=== PATIENT | female | born 1985 | race Caucasian/White ===

== ENCOUNTER → 2018-05-01 11:59 | Outpatient (CLI) | payer OTHER, MEDICAID, SELFPAY ==
--- NOTE | 2018-05-01 11:59 | DI.US.S_ITS ---
PROCEDURE: US PELVIC COMPLETE INDICATIONS: MENORRHAGIA TECHNIQUE: Real-time scanning was performed of the pelvic organs, with image documentation. Additional endovaginal scanning was necessary due to incomplete visualization of the adnexal and endometrial structures by transabdominal scanning. COMPARISON: None. FINDINGS: Transabdominal scanning: Limited scanning through the kidneys shows no hydronephrosis. No pathologic free abdominal or pelvic fluid. Endovaginal scanning: Uterus: Uterus is normal in size at 7.8 x 3.6 x 5.1 cm. The endometrium measures 11 mm in combined thickness. Ovaries: The right ovary measures 2.6 x 2.1 x 2.8 cm. The left ovary measures 3.1 x 1.8 x 1.6 cm. The ovaries have a normal sonographic appearance. No adnexal masses are seen. IMPRESSION: Negative pelvic ultrasound. Dictated by: Jacob Simmosn M.D. on 05/01/2018 at 12:06 Approved by: Jacob Simmons M.D. on 05/01/2018 at 12:07
== END ==
PROVIDERS: Family Provider Family Medicine; PCP Family Medicine; Visit Provider Family Medicine
DX: N92.1 Excessive and frequent menstruation with irregular cycle (principal)
CPT/HCPCS: 76830; 76856

== ENCOUNTER → 2019-12-12 14:18 | Outpatient (CLI) | payer OTHER, MEDICAID, SELFPAY ==
[2019-12-12 17:34] LABS: Influenza A - CEPHEID Flu A NEGATIVE (NEGATIVE); Influenza B - CEPHEID Flu B NEGATIVE (NEGATIVE)
[2019-12-13 23:39] LABS: COVID19 Sendout Not Detected (Not Detected)
== END ==
PROVIDERS: Family Provider Family Medicine; PCP Family Medicine; Visit Provider Family Medicine
DX: R05 Cough (principal)
CPT/HCPCS: 87502; 87635

== ENCOUNTER 2020-07-26 12:37 | Emergency (ER) | payer OTHER, MEDICAID, SELFPAY ==
[2020-07-26 12:50] VITALS: BP 134/67; PULSE 81; RESP 17; TEMP 36.4; O2SAT 100; BMI 23.6
--- NOTE | 2020-07-26 13:45 | ED.NAVMDI ---
HPI - Nausea/Vomiting/Diarrhea General Chief complaint: Nausea/Vomiting/Diarrhea Stated complaint: Throwing up, Hot and Cold, Can't Stand, No Taste Time Seen by Provider: 07/26/20 13:06 Source: patient Mode of arrival: Wheelchair Limitations: no limitations History of Present Illness HPI Narrative: Patient is a 34-year-old female who presents with generalized body aches and vomiting. She says yesterday she she cannot taste or smell anything. She works at [employer] and was recently switched over to work nights. Today she has been vomiting nonstop and has mid epigastric pain. She has body aches and chills but denies any fever. She overall has fatigue and does not feel well. MD complaint: nausea, vomiting and abdominal pain Location of pain: epigastric Related Data Previous Rx's Medication Instructions Recorded ondansetron 4 mg PO Q8H PRN #10 tab 07/26/20 Allergies Allergy/AdvReac Type Severity Reaction Status Date / Time Sulfa (Sulfonamide Allergy Unknown Verified 07/26/20 13:29 Antibiotics) Review of Systems Review of Systems Narrative: GENERAL: + fatigue, +body aches + chills HEENT: Denies sinus pain, ear pain, sore throat, difficulty swallowing, neck pain RESPIRATORY: Denies dyspnea, cough, wheezing, hemoptysis, sputum. CARDIOVASCULAR: Denies chest pain, palpitations, orthopnea, edema GASTROINTESTINAL: See HPI : Denies dysuria, frequency, incontinence, hematuria, urinary retention, flank pain. MUSCULOSKELETAL: Denies weakness, joint pain, or bony pain SKIN: No rash, no erythema, no pruritus NEUROLOGIC: Denies weakness, dizziness, headache, numbness, change in speech, confusion PSYCHIATRIC: No concerning psychosocial issues. 12 point review of systems is negative except for those stated above and HPI Patient History Medical History ADHD (attention deficit hyperactivity disorder) (Chronic) Anemia (Chronic) Ankle pain (Chronic 2010) Anorexia (Chronic) Anxiety (Chronic) Asthma (Chronic) Chronic back pain (Chronic) Chronic headaches (Chronic) Cystic fibrosis (Chronic 2000) Depression (Chronic) Foot pain (Chronic) Hearing loss (Chronic) Migraines (Chronic) Shoulder pain (Chronic) Surgical History No history of previous surgery (Resolved 07/2017) Family History Father Age: 53 Hypertension High cholesterol Grandfather Bone cancer Hypertension Grandmother Cancer Hypertension High cholesterol Stroke Mother Heart disease Hypertension Grandfather Age: 83 Cancer Heart disease Hypertension High cholesterol Grandmother Hypertension High cholesterol Diabetes mellitus Social History Smoking Status: Former smoker Smoking Status: Former smoker alcohol intake frequency: holidays/special occasions only Substance Use Type: marijuana Exam Initial Vital Signs Initial Vital Signs: Vital Signs Temperature 97.5 F L 07/26/20 12:50 Pulse Rate 81 07/26/20 12:50 Respiratory Rate 17 07/26/20 12:50 Blood Pressure 134/67 07/26/20 12:50 Pulse Oximetry 100 07/26/20 12:50 GENERAL: A thin young female appears to not feel well and in no acute distress. HEENT: Head atraumatic,EOMI, pupils reactive, face symmetric, moist mucous membranes CARDIOVASCULAR: Regular rate and rhythm without murmurs, rubs or gallops. RESPIRATORY: Breath sounds equal bilaterally, no wheezes rales or rhonchi. ABDOMEN: Soft, mild epigastric pain no guarding or rebound no right upper quadrant pain EXTREMITIES: Normal range of motion, no clubbing or edema. Neurovascularly intact NEUROLOGICAL: Alert and oriented x4.Normal gait and speech. SKIN: Warm, dry, no laceration, no petechiae, no rashes or lesions. Course Orders Ordered: ED Orders 07/26/20 13:45 COVID19 Stat 07/26/20 14:20 Complete Blood Count AUTO DIFF Stat Comprehensive Metabolic Panel Stat Lipase Stat Discontinued Medications Sodium Chloride (Normal Saline 0.9%) 1,000 mls @ 1,000 mls/hr IV CONT ANNEL Last Infusion: 07/26/20 15:05 Dose: 0 mls/hr Documented by: Admin: 07/26/20 14:03 Dose: 1,000 mls/hr Documented by: SANDIP Ondansetron HCl (Zofran) 4 mg IV NOW ONE Stop: 07/26/20 13:25 Last Admin: 07/26/20 14:02 Dose: 4 mg Documented by: SANDIP Ondansetron HCl (Zofran) 4 mg IV NOW ONE Stop: 07/26/20 14:43 Last Admin: 07/26/20 14:52 Dose: 4 mg Documented by: SANDIP Pantoprazole Sodium (Protonix) 40 mg IV NOW ONE Stop: 07/26/20 14:43 Last Admin: 07/26/20 14:52 Dose: 40 mg Documented by: SANDIP Vital Signs Vital signs: Vital Signs - 8 hr 07/26/20 12:50 07/26/20 14:12 07/26/20 14:30 Temperature 97.5 F L Pulse Rate 81 71 60 Respiratory Rate 17 Blood Pressure 134/67 119/72 Pulse Oximetry 100 100 100 07/26/20 15:00 07/26/20 15:30 07/26/20 16:00 Temperature Pulse Rate 68 62 69 Respiratory Rate Blood Pressure 110/67 108/69 115/82 Pulse Oximetry 97 97 98 MDM - Nausea/Vomiting/Diarrhea Lab Data Attestation: I reviewed the patient's lab results. Result diagrams: 07/26/20 14:20 07/26/20 14:20 Labs: Lab Results 07/26/20 07/26/20 07/26/20 Range/Units 13:45 14:20 14:20 WBC 5.4 (4.5-11.0) X10^3/uL RBC 4.09 (4.0-5.2) X10^6/uL Hgb 12.1 (12.0-16.0) g/dL Hct 36.3 (36-46) % MCV 88.7 (80-100) fL MCH 29.7 (26-34) PG MCHC 33.4 (30-36) % RDW 12.7 (11.6-14.8) % Plt Count 136 L (150-400) X10^3/uL Neut % (Auto) 71.0 (50-75) % Lymph % (Auto) 19.9 L (25-40) % [place] % (Auto) 8.2 (3-14) % Eos % (Auto) 0.4 L (2-4) % Baso % (Auto) 0.5 (0-2) % Neut # (Auto) 3900 (7987-4806) /uL Lymph # (Auto) 1100 (0248-6744) /uL [place] # (Auto) 400 (0-900) /uL Eos # (Auto) 0 (0-450) /uL Baso # (Auto) 0 (0-100) /uL Sodium 138 (137-145) mmol/L Potassium 3.6 (3.4-5.1) mmol/L Chloride 107 (98-107) mmol/L Carbon Dioxide 23 (22-32) mmol/L BUN 13 (7-17) mg/dL Creatinine 0.67 (0.52-1.04) mg/dL Estimated GFR > 60.0 (>60) mL/min BUN/Creatinine Ratio 19.4 (6-22) Glucose 86 (70-100) mg/dL Calcium 9.3 (8.4-10.2) mg/dL Total Bilirubin 0.8 (0.2-1.3) mg/dL AST 21 (14-36) IU/L ALT 15 (<35) IU/L Alkaline Phosphatase 82 (38-126) U/L Total Protein 6.9 (6.3-8.2) g/dL Albumin 4.1 (3.5-5.0) g/dL Globulin 2.8 (1.7-4.1) g/dL Albumin/Globulin Ratio 1.5 (1.0-2.8) Lipase 93 (23-300) U/L COVID-19 PCR Negative (Negative) MDM Narrative Medical decision making narrative: Patient is now tolerating fluids blood work is overall reassuring COVID is negative however patient does have loss of taste and smell which is highly suspicious for COVID-19. I recommend treating this as COVID-19, and quarantining for 14 days. She does not have any respiratory symptoms at this time. Discharge Plan Departure Patient Disposition: Home Clinical Impression: COVID-19, Gastroenteritis Discharge Date/Time: 07/26/20 16:20 Instructions: DI for COVID-19 (Suspected or Confirmed ) Activity Restrictions/Additional Instructions: *You have been diagnosed with high suspicion for COVID-19 *What to do: You are generally going to feel ill. To rest, hydrate, fever control *Continue to take medications as directed Zofran 4 mg every 8 hours if needed for nausea or vomiting-->SENT TO [facility] Tylenol 1000 mg every 6 hours if needed for pain or fever *Follow up with your primary care provider in 2-3 days *Return to ER if you should have increasing shortness of breath, inability to tolerate fluids, [or] any new, worsening or concerning symptoms CDC Guidelines for home isolation: - Stay away from others - Limit contact with pets and animals: If you must care for a pet, wash your hands before and after interacting with them - Wear a mask if you are sick - Cover your mouth and nose with a tissue when you cough or sneeze. Dispose of tissues in a lined trash can and wash your hands immediately with soap and water for at least 20 seconds. If soap and water are not available, clean hands with alcohol-based hand conservation worker that contains at least 60% alcohol. - Clean your hands often with soap and water for at least 20 seconds - Avoid touching your eyes, nose and mouth with unwashed hands - Do not share dishes, drinking glasses, cups, eating utensils, towels, or bedding with other people in your home. After using these items, wash them thoroughly with soap and water or put in the coil machine supervisor. - Clean high-touch surfaces in your isolation area (?sick room? and bathroom) every day; let a caregiver clean and disinfect high-touch surfaces in other areas of the home. Clean the area or item with soap and water or another detergent if it is dirty. Then, use a household disinfectant. Seek medical attention, but call first: - Seek medical care right away if your illness is worsening (for example, if you have difficulty breathing). - Call your doctor before going in: Before going to the doctor?s office or emergency room, call ahead and tell them your symptoms. They will tell you what to do. - If possible, put on a facemask before you enter the building. If you can?t put on a facemask, try to keep a safe distance from other people (at least 6 feet away). This will help protect the people in the office or waiting room. - Follow care instructions from your healthcare provider and local health department: Your local health authorities will give instructions on checking your symptoms and reporting information. Emergency warning signs for COVID-19: - Difficulty breathing or shortness of breath - Persistent pain or pressure in the chest - New confusion or inability to arouse - Bluish lips or face Prescriptions: New ondansetron 4 mg tablet,disintegrating 4 mg PO Q8H PRN (Reason: nausea and vomiting) Qty: 10 RF: 0 Referrals: Marlen Peres MD [Primary Care Provider] - Stand Alone Forms: Work Release Note
[2020-07-26] MEDS: ONDANSETRON 4 MG/2 ML INJ IV ×2 (14:02→14:52)
[2020-07-26] MEDS: SODIUM CHLORIDE 0.9% 1,000 ML 1000 ML IV (14:03)
[2020-07-26 14:12] VITALS: PULSE 71; O2SAT 100
[2020-07-26 14:27] LABS: COVID19 -Nasal RAPID Negative (Negative)
[2020-07-26 14:30] VITALS: BP 119/72; PULSE 60; O2SAT 100
[2020-07-26 14:35] LABS: Add Manual Diff / Slide Review NO; Basophils Absolute Auto 0 /uL (0-100); Basophils Percent Auto 0.5 % (0-2); Eosinophils Absolute Auto 0 /uL (0-450); Eosinophils Percent Auto 0.4 % (2-4); Hematocrit 36.3 % (36-46); Hemoglobin 12.1 g/dL (12.0-16.0); Lymphocytes Absolute Auto 1100 /uL (1100-4500); Lymphocytes Percent Auto 19.9 % (25-40); Mean Corpuscular HGB Conc 33.4 % (30-36); Mean Corpuscular Hemoglobin 29.7 PG (26-34); Mean Corpuscular Volume 88.7 fL (80-100); Monocytes Absolute Auto 400 /uL (0-900); Monocytes Percent Auto 8.2 % (3-14); Neutrophils Absolute Auto 3900 /uL (1500-7000); Platelet Count 136 X10^3/uL (150-400); Red Blood Cell Count 4.09 X10^6/uL (4.0-5.2); Red Cell Distribution Width 12.7 % (11.6-14.8); White Blood Cell Count 5.4 X10^3/uL (4.5-11.0)
[2020-07-26 14:52] LABS: Alanine Aminotransferase 15 IU/L (<35); Albumin 4.1 g/dL (3.5-5.0); Albumin Globulin Ratio 1.5 (1.0-2.8); Alkaline Phosphatase 82 U/L (38-126); Aspartate Aminotransferase 21 IU/L (14-36); BUN Creatinine Ratio 19.4 (6-22); Bilirubin Total 0.8 mg/dL (0.2-1.3); Blood Urea Nitrogen 13 mg/dL (7-17); Calcium 9.3 mg/dL (8.4-10.2); Carbon Dioxide 23 mmol/L (22-32); Chloride 107 mmol/L (98-107); Estimated Glomerular Filt Rate > 60.0 mL/min (>60); Globulin 2.8 g/dL (1.7-4.1); Glucose 86 mg/dL (70-100); HEMOLYSIS < 15 (0-50); Lipase 93 U/L (23-300); Potassium 3.6 mmol/L (3.4-5.1); Sodium 138 mmol/L (137-145); Total Protein 6.9 g/dL (6.3-8.2)
[2020-07-26] MEDS: PANTOPRAZOLE 40 MG VIAL IV (14:52)
[2020-07-26 15:00] VITALS: BP 110/67; PULSE 68; O2SAT 97
[2020-07-26 15:30] VITALS: BP 108/69; PULSE 62; O2SAT 97
[2020-07-26 16:00] VITALS: BP 115/82; PULSE 69; O2SAT 98
== END 2020-07-26 16:20 | disposition home or self-care (01) ==
PROVIDERS: Emergency Provider Emergency Medicine; Family Provider Family Medicine; PCP Family Medicine
DX: U07.1 COVID-19 (principal); K52.9 Noninfective gastroenteritis and colitis, unspecified; R11.2 Nausea with vomiting, unspecified
CPT/HCPCS: 36415; 80053; 83690; 85025; 87635; 96361; 96374; 96375; 96376; 99284; C9113; J2405

== ENCOUNTER → 2020-08-14 11:31 | Outpatient (CLI) | payer OTHER, MEDICAID, SELFPAY ==
[2020-08-14 12:05] LABS: COVID19 -Nasal RAPID Negative (Negative)
== END ==
PROVIDERS: Family Provider Family Medicine; PCP Family Medicine; Visit Provider Family Medicine
DX: R05 Cough (principal)
CPT/HCPCS: 87635

== ENCOUNTER → 2020-08-14 11:49 | Outpatient (CLI) | payer OTHER, MEDICAID, SELFPAY ==
[2020-08-14 12:54] LABS: Add Manual Diff / Slide Review NO; Basophils Absolute Auto 0 /uL (0-100); Basophils Percent Auto 0.4 % (0-2); Eosinophils Absolute Auto 200 /uL (0-450); Eosinophils Percent Auto 3.5 % (2-4); Hematocrit 36.9 % (36-46); Hemoglobin 12.2 g/dL (12.0-16.0); Lymphocytes Absolute Auto 1400 /uL (1100-4500); Lymphocytes Percent Auto 25.2 % (25-40); Mean Corpuscular HGB Conc 33.1 % (30-36); Mean Corpuscular Hemoglobin 29.7 PG (26-34); Mean Corpuscular Volume 89.8 fL (80-100); Monocytes Absolute Auto 400 /uL (0-900); Neutrophils Absolute Auto 3500 /uL (1500-7000); Neutrophils Percent Auto 62.9 % (50-75); Platelet Count 196 X10^3/uL (150-400); Red Blood Cell Count 4.11 X10^6/uL (4.0-5.2); Red Cell Distribution Width 13.6 % (11.6-14.8); White Blood Cell Count 5.6 X10^3/uL (4.5-11.0)
[2020-08-14 13:16] LABS: Erythrocyte Sedimentation Rate 8 MM/HR (0-20)
[2020-08-14 13:19] LABS: C-Reactive Protein Quant < 0.5 mg/dL (<1.0)
[2020-08-14 13:58] LABS: TSH w/ Reflex to FT4 1.16 uIU/mL (0.47-4.68)
[2020-08-17 16:22] LABS: ANA Screen, IFA Negative (.)
== END ==
PROVIDERS: Family Provider Family Medicine; PCP Family Medicine; Referring Provider Family Medicine; Visit Provider Family Medicine
DX: D69.6 Thrombocytopenia, unspecified (principal); M25.50 Pain in unspecified joint; R21 Rash and other nonspecific skin eruption; R05 Cough
CPT/HCPCS: 36415; 84443; 85025; 85651; 86038; 86140; 87635

== ENCOUNTER → 2020-08-22 09:13 | Outpatient (CLI) | payer OTHER, MEDICAID, SELFPAY ==
[2020-08-22 10:23] LABS: Rheumatoid Factor < 8.6 IU/mL (<12.0)
[2020-08-25 20:09] LABS: CCP Antibodies IgG/IgA 6 units (0-19)
== END ==
PROVIDERS: Family Provider Family Medicine; PCP Family Medicine; Referring Provider Family Medicine; Visit Provider Family Medicine
DX: M25.50 Pain in unspecified joint (principal); R21 Rash and other nonspecific skin eruption
CPT/HCPCS: 36415; 86200; 86430

== ENCOUNTER → 2021-01-08 08:44 | Outpatient (CLI) | payer OTHER, MEDICAID, SELFPAY ==
[2021-01-08 11:38] LABS: Alanine Aminotransferase 14 IU/L (<35); Albumin 4.3 g/dL (3.5-5.0); Albumin Globulin Ratio 1.3 (1.0-2.8); Alkaline Phosphatase 145 U/L (38-126); Aspartate Aminotransferase 23 IU/L (14-36); BUN Creatinine Ratio 27.3 (6-22); Bilirubin Total 0.2 mg/dL (0.2-1.3); Blood Urea Nitrogen 21 mg/dL (7-17); Calcium 9.5 mg/dL (8.4-10.2); Carbon Dioxide 25 mmol/L (22-32); Chloride 105 mmol/L (98-107); Estimated Glomerular Filt Rate > 60.0 mL/min (>60); Globulin 3.3 g/dL (1.7-4.1); Glucose 62 mg/dL (70-100); HEMOLYSIS < 15 (0-50); Sodium 139 mmol/L (137-145); Total Protein 7.6 g/dL (6.3-8.2)
== END ==
PROVIDERS: Family Provider Family Medicine; PCP Family Medicine; Referring Provider Family Medicine; Visit Provider Family Medicine
DX: L50.1 Idiopathic urticaria (principal); M25.50 Pain in unspecified joint; R21 Rash and other nonspecific skin eruption
CPT/HCPCS: 36415; 80053

== ENCOUNTER → 2021-02-02 10:45 | Outpatient (CLI) | payer OTHER, MEDICAID, SELFPAY ==
[2021-02-02 12:59] LABS: Alkaline Phosphatase 112 U/L (38-126); Gamma Glutamyl Transpeptidase 16 U/L (12-43); Glucose 71 mg/dL (70-100)
== END ==
PROVIDERS: Family Provider Family Medicine; PCP Family Medicine; Referring Provider Family Medicine; Visit Provider Family Medicine
DX: R74.8 Abnormal levels of other serum enzymes (principal); E16.2 Hypoglycemia, unspecified
CPT/HCPCS: 36415; 82947; 82977; 84075

== ENCOUNTER → 2021-04-08 14:04 | Outpatient (CLI) | payer OTHER, MEDICAID, SELFPAY ==
[2021-04-08 14:49] LABS: COVID19 -Nasal RAPID Negative (Negative)
== END ==
PROVIDERS: Family Provider Family Medicine; PCP Family Medicine; Visit Provider Obstetrics & Gynecology
DX: Z01.812 Encounter for preprocedural laboratory examination (principal); Z20.822 Contact with and (suspected) exposure to COVID-19
CPT/HCPCS: 87635

== ENCOUNTER 2021-04-09 12:01 | Day surgery (SDC) | payer OTHER, MEDICAID, SELFPAY ==
[2021-04-02 10:56] VITALS: BMI 24.6
[2021-04-09] VITALS (11 sets, daily range): BP systolic 92–133; BP diastolic 58–84; PULSE 52–81; RESP 12–16; TEMP 35.6–37.3; O2SAT 99–100; BMI 25.4
--- NOTE | 2021-04-09 | PATH_ITS ---
[facility] Accession Number: [id number] . 01 Material submitted: . uterus - UTERUS, BILATERAL FALLOPIAN TUBES . 01 Clinical history: . COLPOSCOPY . 02 Diagnosis: Uterus, Bilateral Fallopian Tubes, Hysterectomy and Bilateral Salpingectomy (Weight 33 grams): Cervix with changes consistent with previous instrumentation. Endocervix with no significant histomorphologic abnormality. Secretory endometrium; negative for glandular hyperplasia, cytologic atypia, or malignancy. Myometrium with no significant histomorphologic abnormality. Uterine serosa with no significant histomorphologic abnormality. Fallopian tubes x2 with multiple benign paratubal cysts (1-5 mm) and no significant histomorphologic abnormality. Negative for atypia or malignancy. Negative for p16 block immunostaining. [facility] 04/14/2021 1732 Local . 02 Electronically signed: . Crissy Vee MD, Pathologist NPI- [id number] . 01 Gross description: . The specimen is received in formalin, labeled uterus, bilateral fallopian tubes and consists of a 33-gram uterus and cervix measuring 7.2 cm from superior fundus to cervix by 5.0 cm from cornu to cornu by 3.0 cm from anterior to posterior. The serosa is hernández-pink and smooth. The hernández-pink smooth, focally granular ectocervix measures 3.0 x 2.5 cm and there is a 1.2 x 0.1 cm os. The specimen is bivalved to reveal a hernández-pink herringbone endocervical mucosa. The endometrial cavity measures 3.2 x 2.0 cm and displays a pink-red hemorrhagic endometrium measuring 0.1 cm in thickness. The myometrium is hernández-pink and trabeculated, measuring 1.4 cm in thickness. Also received are two detached fallopian tubes measuring 4.5 cm in length by 0.7 cm in diameter and 5.3 cm in length by 0.9 cm in diameter. The serosa is hernández-pink and smooth with multiple paratubal cysts ranging from 0.1-0.5 cm. Sectioning reveals a hernández-pink mucosa and a stellate lumen measuring 0.3 cm in diameter. Lunchroom Food Service Supervisor sections are submitted. . A1-A2: Cervix, 12-3 o'clock. A3-A4: Cervix, 3-6 o'clock. A5-A6: Cervix, 6-9 o'clock. A7-A8: Cervix, 9-12 o'clock. A9: Anterior lower uterine segment. A10: Anterior uterus. A11: Posterior lower uterine segment. A12: Posterior uterus. A13-A14: Fallopian tubes, margin (blue/en face), central cross-sections and bisected fimbria. (EA:[id number]) /MRV 04/10/2021 [facility]8 Local . 02 Microscopic: . An immunohistochemical stain for p16 is performed on blocks A1-A8 to evaluate for block reactivity and is negatve for block immunostaining. The control stained with appropriate reactivity. . The absence of p16 block immunostaining mitigates against the presence of high risk HPV DNA in this biopsy. . . * This test was developed and its performance characteristics determined by [employer]. It has not been cleared or approved by the U.S. Food and Drug Administration. The FDA has determined that such clearance or approval is not necessary. This test is used for clinical purposes. It should not be regarded as investigational or for research. . 02 Pathologist provided ICD-10: Z87.410, N93.9, N88.9 . 02 CPT . 632640, K53190 Performed at: 01 [facility] [address] [place] [address], [place], [place] [id number] MD Prashant Case MD Phone: [phone] Performed at: [address] [id number] MD Mayelin Montoya MD Phone: [phone]
[2021-04-09] MEDS: LACTATED RINGERS 1,000 ML 100 ML IV ×3 (12:45→19:39)
--- NOTE | 2021-04-09 13:08 | PM.PREOP ---
Pre-operative Note COVID-19 COVID-19 status: Negative Result date/Date tested (Pos, Neg/Pending): 04/08/21 Interval Note History & Physical reviewed/Exam performed by Physician: No Changes to H&P: No H&P completed within 30 days and has changed as indicated here:: Discussed with patient risks and benefits of surgery. Discussed risk of damage to bowel, bladder, and ureters, risk of hemorrhage and risk of infection. Discussed need for repair intraoperatively or repeat surgery. Discussed prophylactic antibiotics. Discussed benefit of bilateral salpingectomy and decreased risk of ovarian cancer, discussed alternatives, discussed risk of prolapse with removal of cervix compared with patient's history of cervical dysplasia. Discussed permanent sterility after hysterectomy. All questions answered, informed consent obtained, and consents signed.
--- NOTE | 2021-04-09 15:05 | SUR.OPER ---
Lithotomy on padded OR bed. [place] Pad Positioner under torso. Head on pillow, arms padded and tucked at sides. Legs secured in padded yellow fins stirrups.
[2021-04-09] MEDS: BUPIVACAINE 0.25% W/ EPI 30 ML VIAL INJ (15:14)
[2021-04-09] MEDS: CEFAZOLIN 1 GM VIAL 2 GM IV (15:15)
--- NOTE | 2021-04-09 16:51 | PM.OP.1 ---
Operative Date/Time/Diagnoses Date of procedure: 04/09/21 Time of procedure: 15:00 Pre-op diagnosis: abnormal uterine bleeding, history of cervical dysplasia Post-op diagnosis: same Procedure & Clinicians Procedure: laparoscopically assisted vaginal hysterectomy and bilateral salpingectomy Same procedure as scheduled: Yes Indications: Abnormal uterine bleeding, history of cervical dysplasia Surgeon: Ashley Sullivan Custom Tailor Apprentice: Chito Chapman Anesthesia Type: General Operative Notes Findings: normal vulva and vagina. Normal uterus, tubes and ovaries. Firm and nodular cervix with prominent ectropion. Normal abdominal survey. Closure Type: primary Specimen(s): other (uterus and bilateral fallopian tubes) Estimated Blood Loss (mL): 100 Blood products transfused: none Procedure in detail: After proper consents were obtained, the patient was taken to the operating room. General anesthesia was induced, and she was placed in the dorsal lithotomy position and prepped and draped in the normal sterile fashion. A urias catheter was placed, and a speculum placed in the patient's vagina. A single tooth tenaculum was applied to the anterior lip of the cervix, and hegar dilators used to dilate the cervix to 6mm with gentle pressure. A uterine manipulator was gently inserted and the balloon inflated to 5ccs. The tenaculum and speculum were removed from the vagina. Attention was then turned to the abdomen, where 1cc of .25% marcaine with epinephrine was used to infiltrate the skin just below the umbilicus. A scalpel was used to make a 5mm incision, towel clamps were applied and used to elevate the anterior abdominal wall, and a Veress needle gently inserted into the abdomen. Intraperitoneal placement was confirmed with a drop of normal saline passed through the veress needle with gravity, and CO2 used to insufflate the abdomen to 15mmHg. A 5mm trocar and sleeve were placed into the abdomen through this incision, using the towel clamps to elevate the abdominal wall, and intraperitoneal placement was confirmed visually with insertion of the laparoscope. Abdominal survey at this time was normal, and lateral ports were placed under direct visualization. These were placed on the left and right, 8cm from the umbilicus and after infiltration of 1mm of local anesthetic as above. The patient was placed in trendelenburg position, and a blunt probe used to gently push the bowel out of the pelvis. The ovaries and fallopian tube remnants appeared normal bilaterally. A atraumatic grasper was used to elevate the remnant of the left fallopian tube, and a PK device was used to amputate this remnant, which was removed from the abdomen. The uteroovarian ligament and round ligaments were then cauterized and transected with this device, the anterior and posterior leaflets of the broad ligament and skeletonized and the vesicouterine peritoneum identified. This was transected and a bladder flap created with the PK device and gentle traction. The uterine arteries were identified, and cauterized at the level of the internal os. The same procedure was performed on the patient's right, without complication. Attention was then turned to the vagina, where the uterine manipulator was removed and a weighted speculum and right angle retractor placed. The cervix was grasped with a double toothed tenaculum, and the vaginal mucosa infiltrated with 15ccs of 0.5%% marcaine with epinephrine. An incision was made circumferentially in the vaginal mucosa, with the vaginal mucosa dissected up and away from the cervix with both blunt and sharp dissection. The peritoneal reflection was visualized posteriorly and entry into the posterior cul de sac made sharply with curved roblero scissors, and a weighted speculum placed in the posterior cul de sac. The uterosacral ligaments were visualized and clamped with a gregory clamp, cut with curved roblero scissors, and suture ligated with 0 vicryl. The anterior vaginal mucosa was dissected further from the cervix and an anterior colpotomy made with sharp dissection, and a right angle inserted for further retraction and protection of the bladder. The tenaculae were used to maintain downward traction on the cervix. The same procedure was used to clamp, cut, and tie the cardinal and broad ligaments and the uterine arteries bilaterally, and the uterus was then able to be removed intact without difficulty. The uterine fundus was removed without issue. The vaginal cuff was closely inspected and found to be hemostatic. The vaginal cuff was closed vertically with 0 vicryl in a running, locked fashion. Attention was then returned to the abdomen, and a final inspection was performed and hemostasis assured on the vaginal cuff with the PK device. A repeat abdominal survey was normal. The 5mm ports were removed, and the skin incisions closed with 4-0 biosyn and covered with steri strips and bandages. Vaginal packing was placed and the patient's urias catheter remained. He was transferred to the PACU in stable condition, though with one episode of his known idiopathic urticaria without a clear trigger or breathing difficulties. The patient received 2g Ancef at the beginning of the case. Complications: none Post-operative Condition: stable Disposition: PACU Plan for aftercare: Routine postoperative care.
[2021-04-09] MEDS: ACETAMINOPHEN 325 MG TABLET 650 MG PO (18:44)
--- NOTE | 2021-04-09 19:19 | PC.ADMIT ---
[address] [facility] 52 Admission Note: The patient,Mayelin Goodman,35 y/o, was given written information regarding hospital policies, unit procedures and contact persons. Patient's smoking status: Former smoker. Vital Signs - 8 hr 04/09/21 12:36 04/09/21 16:30 04/09/21 16:43 Temperature 99.1 F 97.1 F L 96.0 F L Pulse Rate 64 59 L 56 L Respiratory Rate 13 16 12 Blood Pressure 111/72 123/69 92/58 L Pulse Oximetry 100 100 04/09/21 16:48 04/09/21 16:53 04/09/21 16:58 Temperature 96.7 F L 97.0 F L 97.2 F L Pulse Rate 58 L 56 L 55 L Respiratory Rate 12 12 12 Blood Pressure 98/70 109/71 114/73 Pulse Oximetry 100 100 100 04/09/21 17:00 04/09/21 17:03 04/09/21 17:12 Temperature 97.7 F 97.2 F L 97.5 F L Pulse Rate 52 L 55 L 81 Respiratory Rate 16 14 16 Blood Pressure 118/77 112/70 133/84 Pulse Oximetry 100 99 100 04/09/21 18:00 Temperature 97.7 F Pulse Rate 68 Respiratory Rate 16 Blood Pressure 115/76 Pulse Oximetry 100 35 y/o male with S/P laporscopic assisted vaginal hystrectomy,admitted from PACU. Alert and orientedx3, denies any pain or discomfort. 3x large bandade on abdominal incision, clean and dry. Vital signs stable.Scd'a in place. 1843 c/o of incisional pain,pain scale of 5/10, tylenol given. 1909 pain lessened. Visitor in room
--- NOTE | 2021-04-09 19:58 | PC.NURSE ---
intake/output: I=90, O= 350, VSS
[2021-04-10 02:52] VITALS: BP 104/71; PULSE 84; RESP 17; TEMP 36.3; O2SAT 99
[2021-04-10] MEDS: ACETAMINOPHEN 325 MG TABLET 650 MG PO ×2 (03:28→08:47)
[2021-04-10] MEDS: IBUPROFEN 600 MG TABLET PO ×2 (04:06→11:08)
--- NOTE | 2021-04-10 04:34 | PC.NURSE ---
Patient sleeping intermittently. Denies any needs, she has been medicated for pain, she has an ice pack on her abd. He throat is a little sore, she was given hot tea at her request. Leyva was removed and patient will call prior to getting up.
[2021-04-10 06:51] LABS: Add Manual Diff / Slide Review NO; Basophils Absolute Auto 0 /uL (0-100); Basophils Percent Auto 0.4 % (0-2); Eosinophils Absolute Auto 0 /uL (0-450); Hematocrit 33.3 % (36-46); Lymphocytes Absolute Auto 500 /uL (1100-4500); Lymphocytes Percent Auto 5.7 % (25-40); Mean Corpuscular HGB Conc 32.9 % (30-36); Mean Corpuscular Hemoglobin 28.5 PG (26-34); Mean Corpuscular Volume 86.6 fL (80-100); Monocytes Absolute Auto 300 /uL (0-900); Monocytes Percent Auto 3.3 % (3-14); Neutrophils Absolute Auto 7700 /uL (1500-7000); Neutrophils Percent Auto 90.6 % (50-75); Platelet Count 154 X10^3/uL (150-400); Red Blood Cell Count 3.84 X10^6/uL (4.0-5.2); Red Cell Distribution Width 13.8 % (11.6-14.8); White Blood Cell Count 8.5 X10^3/uL (4.5-11.0)
[2021-04-10 06:57] LABS: BUN Creatinine Ratio 23.1 (6-22); Blood Urea Nitrogen 15 mg/dL (7-17); Calcium 8.8 mg/dL (8.4-10.2); Carbon Dioxide 24 mmol/L (22-32); Chloride 105 mmol/L (98-107); Estimated Glomerular Filt Rate > 60.0 mL/min (>60); Glucose 133 mg/dL (70-100); HEMOLYSIS < 15 (0-50); Potassium 4.5 mmol/L (3.4-5.1); Sodium 135 mmol/L (137-145)
[2021-04-10 08:30] VITALS: BP 109/73; PULSE 76; RESP 16; TEMP 36.9
[2021-04-10] MEDS: DOCUSATE 100 MG CAPSULE 200 MG PO (08:49)
[2021-04-10] MEDS: OXYCODONE IR 5 MG TABLET PO (09:50)
--- NOTE | 2021-04-10 10:34 | PC.NURSE ---
0830 Patient got out of bed and went to the bathroom. Voided 550ml yellow, clear urine. Patient tolerated getting up well. Patient eager to be discharged. 3 incision site bandaids clean, dry and intact. Patient has scant bleeding.
--- NOTE | 2021-04-10 11:13 | PC.NURSE ---
1110 Discharge teaching completed. Packet given to patient Questions answered and Patient verbalized understanding. Perscriptions sent to [facility] pharmacy in by Dr. Chapman. Patient waiting for ride.
--- NOTE | 2021-04-10 13:14 | PM.DS.1 ---
History of Present Illness History of Present Illness Date Patient Seen: 04/10/21 Time Patient Seen: 10:05 Chief complaint: Laparoscopic Assisted Vag Hysterectomy *OPB* Narrative: This patient is a 35-year-old trans man, history of 4 prior vaginal deliveries and a several year history of long and painful menses, presenting to discuss hysterectomy. This patient has been on oral contraceptive pills and attempted implantable hormonal contraception without relief of his symptoms, and at this point is done with childbearing and desires definitive management of his long, heavy, and painful menses. The patient additionally has a history of high-grade cervical dysplasia, though after an interval lost to follow-up has more recently had low-grade dysplasia and a recent normal colposcopy. The patient has no other contributory service girl, medical, or surgical history. We discussed the risks and benefits of laparoscopically assisted vaginal hysterectomy today. We discussed the risk of damage to surrounding organs such as bowel, bladder, and ureters, sometimes necessitating further surgery. We discussed the risk of infection preoperative antibiotics. We discussed the risk of hemorrhage. We discussed the removal of the cervix may predispose to pelvic organ prolapse, but that I would recommend removal given the patient's history of cervical dysplasia. We discussed the risks and benefits of the laparoscopic portion of the procedure, specifically removal of the fallopian tubes and up to 80% decreased risk of ovarian cancer but increased surgical risk. We discussed the risks and benefits of removal of the ovaries, including risks of premature menopause to cardiac and bone health as the patient has not commenced hormonal transition. The patient vocalized understanding of all the above. Informed consent was obtained 03/31/2021 and he is admitted at this time for hysterectomy with bilateral salpingectomy for the aforementioned indications. Discharge Providers Provider Date of admission: 04/09/2021 Discharge Date: 04/10/21 Primary care physician: Liam Joyner MD Discharge provider: Chito Chapman MD Summary Hospital Course Discharge Diagnosis: Status-post Laparoscopic Assisted Vaginal Hysterectomy with bilateral salpingo-oophorectomy History of menometrorrhagia History of severe dysmenorrhea History of high-grade cervical dysplasia Hospital Course: [place] on the afternoon Of 04/09/2021, the patient underwent an uneventful laparoscopic assisted vaginal hysterectomy with bilateral salpingectomy. Details regarding the procedure and findings at that time her well summarized on the dictated operative note of Dr. Ramirez [place] dated 04/09/2021. following surgery the patient has done extremely well with prompt return of bowel and bladder function, he is ambulating independently, tolerating regular diet, and his pain is well controlled with as needed oxycodone 5 mg tablets. First morning postop hemoglobin and hematocrit are 11.0/33.3 respectively which is consistent with the observed intraoperative blood loss. Patient at this time will be discharged to home in and afebrile normotensive condition with medications to include oxycodone 5 mg tabs 1 p.o. q.4 hours as needed pain dispense 20 with no refills, and ibuprofen 600 mg p.o. q.6 hours as needed pain #60 x2. prior to discharge, the patient was counseled regarding precautionary symptoms, limitations of activity, medications, and plans for follow-up. He will be seen in the office by Dr. Ashley Sullivan in 1 week for his initial postop evaluation. Status at Discharge Cognitive/behavioral status at discharge: oriented Functional status at discharge: independent ambulation Overall status at discharge: patient is progressing back to baseline Time Spent with Patient Time spent: Less than 30 minutes Exam Vital Signs (past 8 hours): - 04/10/21 08:30 Temperature 98.5 F Pulse Rate 76 Respiratory Rate 16 Blood Pressure 109/73 Oxygen Delivery Method Room Air Const General: cooperative and comfortable Nutritional Appearance: average body habitus Orientation: alert and oriented x3 HENMT Head: normal to inspection, atraumatic and abrasion Ears: hearing grossly normal bilaterally Eyes General: appearance normal, both eyes and all related structures Neck Neck: normal visual inspection Resp Effort & Inspection: normal respiratory effort and able to speak in complete sentences Auscultation: clear to auscultation bilaterally Cardio Rate: regular rate Rhythm: regular rhythm Heart Sounds: S1 normal, S2 normal and no murmurs GI Inspection: normal to inspection, non-distended and incision (All incisions are clean and dry.) Palpation: soft, no hepatosplenomegaly and tender (Mild, diffuse) External Female Exam: other (Minimal sanguinous discharge PV) Psych Appearance: grossly normal Mental Status: mental status grossly normal Speech and Movement: speech and movement normal Mood: congruent mood Affect: normal affect Attitude: cooperative Thought Process: normal Thought Content: normal Judgment: judgment good Objective Labs Result Diagrams: 04/10/21 06:37 04/10/21 06:37 Labs: Laboratory Results - last 24 hr 04/10/21 04/10/21 06:37 06:37 WBC 8.5 RBC 3.84 L Hgb 11.0 L Hct 33.3 L MCV 86.6 MCH 28.5 MCHC 32.9 RDW 13.8 Plt Count 154 Neut % (Auto) 90.6 H Lymph % (Auto) 5.7 L [place] % (Auto) 3.3 Eos % (Auto) 0.0 L Baso % (Auto) 0.4 Neut # (Auto) 7700 H Lymph # (Auto) 500 L [place] # (Auto) 300 Eos # (Auto) 0 Baso # (Auto) 0 Sodium 135 L Potassium 4.5 Chloride 105 Carbon Dioxide 24 BUN 15 Creatinine 0.65 Estimated GFR > 60.0 BUN/Creatinine Ratio 23.1 H Glucose 133 H Calcium 8.8 PFSH Medical History ADHD (attention deficit hyperactivity disorder) Anemia Ankle pain (2010) Anorexia Anxiety Asthma Bacterial pneumonia Chronic back pain Chronic bronchitis Chronic headaches 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 Depression Foot pain Hearing loss Idiopathic urticaria Joint pain Migraines Rash Seasonal allergies Shoulder pain Transgender Surgical History Hx of oral surgery No history of previous surgery (07/2017) Family History Father Age: 54 Hypertension High cholesterol Grandfather Bone cancer Hypertension Grandmother Cancer Hypertension High cholesterol Stroke Mother Heart disease Hypertension Grandfather Age: 84 Cancer Heart disease Hypertension High cholesterol Grandmother Hypertension High cholesterol Diabetes mellitus Social History household members: significant other and children Smoking Status: Former smoker alcohol intake: current Discharge Assessment & Plan Assessment and Plan Assessment: Ready for discharge, doing well s/p [facility] with BS Plan of Treatment: Routine postoperative care and written instructions provided. Follow-up will be in one week or as needed. Discharge Plan Discharge Plan Patient Disposition: Home Provider Discharge Comment: See written discharge instructions. Nursing Discharge Comment: Discharged home in stable condition. Accompanied by staff and SO. Ambulated to car. Belongings with patient Discharge orders & Medications Discharge Orders: Discharge (Order); Ordered 04/10/21 Ordered By: Chito Chapman Prescriptions: New oxycodone 5 mg tablet 5 mg PO Q6H PRN (Reason: pain) Qty: 15 RF: 0 ibuprofen 600 mg Tablet 600 mg PO Q6HR PRN (Reason: Fever/Mild Pain (1-3)) Qty: 60 RF: 1 oxycodone 5 mg Tablet 5 mg PO Q4HR PRN (Reason: Pain, Moderate (4-6)) Qty: 20 RF: 0 oxycodone 5 mg tablet 5 mg PO Q4H PRN (Reason: pain) Qty: 20 RF: 0 ibuprofen 600 mg tablet 600 mg PO Q6H PRN (Reason: post-op pain) Qty: 60 RF: 0 Continued famotidine 20 mg Tablet 20 mg PO BID RF: 0 Follow up/Referrals: Ashley Sullivan MD [Physician] - 2 Weeks (Postop check in two weeks. Call office to make appointment.) Diet/Activity/Treatments Diet: Regular Activity: Nothing in the vagina for 12 weeks. Avoid lifting more than 10 lbs for 6 weeks. If you have increasing bleeding, fevers, chills, nausea, vomiting, trouble using the bathroom, or any other symptoms, call or come to the emergency room. Skin/Wound/Dressing Care Report to your healthcare provider any signs of infection, such as:: chills, fever, night sweats, increased pain, unusual drainage and unusual redness Dressing: Remove day after surgery. Visit Report/Discharge Packet Instructions: DI for Hysterectomy, DI for Laparoscopy Stand Alone Forms: Surgery Discharge Discharge Data Primary Care Provider: Liam Joyner Attending Provider: Ashley Sullivan
== END 2021-04-10 11:30 | disposition home or self-care (01) ==
LOC: OR 12:03 → AC 12:03 → LABOR 18:27
PROVIDERS: Family Provider Family Medicine; PCP Family Medicine; Referring Provider Obstetrics & Gynecology; Visit Provider Obstetrics & Gynecology
PROC: 0UT9FZZ Resection of Uterus, Via Natural or Artificial Opening With Percutaneous Endoscopic Assistance (ICD-10-PCS; CPT 58552; principal; 2021-04-09 13:30)
DX: N93.8 Other specified abnormal uterine and vaginal bleeding (principal); Z87.42 Personal history of other diseases of the female genital tract; N86 Erosion and ectropion of cervix uteri; L50.1 Idiopathic urticaria; N88.9 Noninflammatory disorder of cervix uteri, unspecified; N83.8 Other noninflammatory disorders of ovary, fallopian tube and broad ligament
CPT/HCPCS: 58552; 80048; 81025; 85025; J0690; J1100; J1200; J2405; J2704; J3010

== ENCOUNTER → 2021-11-17 09:30 | Outpatient (CLI) | payer OTHER, MEDICAID, SELFPAY ==
[2021-11-17 12:57] LABS: Hematocrit 36.8 % (36-46); Hemoglobin 12.2 g/dL (12.0-16.0); Mean Corpuscular HGB Conc 33.2 % (30-36); Mean Corpuscular Hemoglobin 29.3 PG (26-34); Mean Corpuscular Volume 88.2 fL (80-100); Platelet Count 169 X10^3/uL (150-400); Red Blood Cell Count 4.17 X10^6/uL (4.0-5.2); White Blood Cell Count 4.1 X10^3/uL (4.5-11.0)
[2021-11-17 13:03] LABS: Hemoglobin A1C% w Est Avg Glu 5.2 % (4.0-6.0)
[2021-11-17 14:37] LABS: Cholesterol 157 mg/dL (140-199); HDL Cholesterol 71 mg/dL (40-60); LDL Cholesterol Calculated 80 mg/dL (<100); Triglycerides 32 mg/dL (35-150)
== END ==
PROVIDERS: Family Provider Family Medicine; PCP Family Medicine; Referring Provider Internal Medicine Endocrinology, Diabetes & Metabolism; Visit Provider Internal Medicine Endocrinology, Diabetes & Metabolism
DX: F64.0 Transsexualism (principal); Z79.899 Other long term (current) drug therapy
CPT/HCPCS: 36415; 80061; 83036; 85027

== ENCOUNTER → 2022-03-26 09:09 | Outpatient (CLI) | payer OTHER, MEDICAID, SELFPAY ==
[2022-03-26 09:45] LABS: Hematocrit 33.6 % (36-46); Hemoglobin 11.4 g/dL (12.0-16.0)
[2022-03-26 10:36] LABS: Albumin 4.3 g/dL (3.5-5.0)
[2022-03-27 07:40] LABS: Sex Hormone Binding Globulin 35.5 nmol/L (24.6-122.0)
[2022-04-02 15:20] LABS: Percent Free Testosterone 1.61 % (0.50-2.80); Testosterone Free 9.96 ng/dL (0.10-0.85); Testosterone Total 618.6 ng/dL (10.0-55.0)
== END ==
PROVIDERS: Family Provider Family Medicine; PCP Family Medicine; Referring Provider Internal Medicine Endocrinology, Diabetes & Metabolism; Visit Provider Internal Medicine Endocrinology, Diabetes & Metabolism
DX: F64.0 Transsexualism (principal); Z79.899 Other long term (current) drug therapy
CPT/HCPCS: 36415; 82040; 84270; 84402; 84403; 85014; 85018

== ENCOUNTER → 2022-06-11 09:01 | Outpatient (CLI) | payer OTHER, MEDICAID, SELFPAY ==
[2022-06-11 10:30] LABS: Alanine Aminotransferase 18 IU/L (<35); Albumin 4.6 g/dL (3.5-5.0); Albumin Globulin Ratio 1.4 (1.0-2.8); Alkaline Phosphatase 149 U/L (38-126); Aspartate Aminotransferase 26 IU/L (14-36); BUN Creatinine Ratio 16.1 (6-22); Bilirubin Total 0.3 mg/dL (0.2-1.3); Blood Urea Nitrogen 15 mg/dL (7-17); Carbon Dioxide 27 mmol/L (22-32); Chloride 102 mmol/L (98-107); Estimated Glomerular Filt Rate > 60 mL/min (>60); Globulin 3.3 g/dL (1.7-4.1); Glucose 101 mg/dL (70-100); HEMOLYSIS < 15 (0-50); Potassium 3.6 mmol/L (3.4-5.1); Sodium 139 mmol/L (137-145); Total Protein 7.9 g/dL (6.3-8.2)
== END ==
PROVIDERS: Family Provider Family Medicine; PCP Family Medicine; Referring Provider Internal Medicine Endocrinology, Diabetes & Metabolism; Visit Provider Internal Medicine Endocrinology, Diabetes & Metabolism
DX: F64.0 Transsexualism (principal); Z79.899 Other long term (current) drug therapy
CPT/HCPCS: 36415; 80053

== ENCOUNTER → 2024-03-19 08:45 | Outpatient (CLI) | payer OTHER, MEDICAID, SELFPAY ==
[2024-03-19 10:11] LABS: Add Manual Diff / Slide Review NO; Basophils Absolute Auto 0 /uL (0-100); Basophils Percent Auto 0.5 % (0-2); Eosinophils Absolute Auto 100 /uL (0-450); Eosinophils Percent Auto 1.6 % (2-4); Hematocrit 41.5 % (36-46); Lymphocytes Absolute Auto 1300 /uL (1100-4500); Lymphocytes Percent Auto 25.5 % (25-40); Mean Corpuscular HGB Conc 33.8 % (30-36); Mean Corpuscular Hemoglobin 30.9 PG (26-34); Mean Corpuscular Volume 91.4 fL (80-100); Monocytes Absolute Auto 600 /uL (0-900); Monocytes Percent Auto 10.7 % (3-14); Neutrophils Absolute Auto 3200 /uL (1500-7000); Neutrophils Percent Auto 61.7 % (50-75); Platelet Count 193 X10^3/uL (150-400); Red Blood Cell Count 4.54 X10^6/uL (4.0-5.2); Red Cell Distribution Width 12.9 % (11.6-14.8); White Blood Cell Count 5.2 X10^3/uL (4.5-11.0)
[2024-03-19 10:38] LABS: Cholesterol 124 mg/dL (140-199); HDL Cholesterol 53 mg/dL (40-60); LDL Cholesterol Calculated 65 mg/dL (<100); Triglycerides 30 mg/dL (35-150)
[2024-03-19 11:10] LABS: TSH w/ Reflex to FT4 1.03 uIU/mL (0.47-4.68)
[2024-03-19 11:12] LABS: Ferritin 20 ng/mL (6-137)
[2024-03-19 11:26] LABS: Vitamin B12 700 pg/mL (239-931)
[2024-03-20 03:38] LABS: Apolipoprotein B 59 mg/dL (<90)
== END ==
PROVIDERS: Family Provider Family Medicine; PCP Family Medicine; Referring Provider Family Medicine; Visit Provider Family Medicine
DX: F41.9 Anxiety disorder, unspecified (principal); F32.9 Major depressive disorder, single episode, unspecified; Z78.9 Other specified health status; D64.9 Anemia, unspecified; R20.0 Anesthesia of skin; R20.2 Paresthesia of skin
CPT/HCPCS: 36415; 80061; 82172; 82607; 82728; 84443; 85025